=== PATIENT | male | born 1970 | race Caucasian/White ===

== ENCOUNTER 2017-05-29 16:07 | Emergency (ER) | payer MEDICAID ==
[~2017-05-29] VITALS: Wt 74.0 kg
[2017-05-29] MEDS ORDERED: ONDANSETRON (ODT) 4 MG TAB ODT STA (16:41)
[2017-05-29] MEDS ORDERED: DIPHENHYDRAMINE 50 MG INJ IM STA (16:41)
[2017-05-29] MEDS ORDERED: HYDROmorphONE 1 MG/ML SYG IM STA (16:41)
--- NOTE | 2017-05-29 17:19 | RADRPT ---
PROCEDURE: CT Head without contrast. CLINICAL INDICATION: Patient experiencing a headache. TECHNIQUE: Continuous axial CT images were obtained from the base of skull to the vertex. No cont rast was administered. The calculated radiation dose measures 720 mGy centimeters. The CTDI measures 45 mGy COMPARISON: None available FINDINGS: The ventricles are symmetric and normal in size. There is no abnormal intra-axial or extra-axial fl uid collection. There is no evidence of intracranial hemorrhage. There are no abnormal areas of in creased or decreased attenuation in the brain parenchyma. There is a 4 mm extra-axial calcification over the left frontal convexity, likely a calcified meningioma, or osteoma. The bony calvarium is intact. The orbital soft tissue contents are unremarkable. Paranasal sinuses appear clear IMPRESSION: No mass effect or acute intracranial bleed. Small 4 mm calcification over the left frontal convexity , likely a small calcified meningioma or osteoma. RPTAT: HBST .Fred Tang MD, MD Date Time Electronically viewed and signed by .Fred Tang MD, on 05/29/2017 17:19 .T/
[2017-05-29] MEDS ORDERED: HYDR-902 PO (18:09)
[2017-05-29] MEDS ORDERED: ONDA4TAB14 PO (18:09)
--- NOTE | 2017-05-29 18:12 | ERD ---
ER Documentation Chief Complaint Date/Time DATE: 05/29/17 TIME: 18:10 Chief Complaint GOLDSTEIN X 2 DAYS HPI This is a 47-year-old male has had a headache for the past 2 days. The patient states he had a gradual onset of the bitemporal headache that is throbbing with photophobia. Is also worse with movement but there is no phonophobia. He has no history of migraines or other headaches. Denies any trauma. Headache is throbbing and nonradiating. He has no nausea vomiting or diarrhea. No focal neurological complaints such as numbness weakness visual change or speech change. No preceding aura. This is a headache is mild to moderate in nature. He said he saw his doctor yesterday and he was given a prescription for Tylenol which is not helping much. ROS All systems reviewed and are negative except as per history of present illness. Medications Home Meds Active Scripts Ondansetron (Ondansetron Odt) 4 Mg Tab.rapdis, 4 MG PO Q6H Y for NAUSEA AND/OR VOMITING, #10 TAB Prov:EDWIN LOZANO DO 05/29/17 Hydrocodone/Acetaminophen ([place] 10-325 Tablet) 1 Each Tablet, 1 TAB PO Q6H Y for PAIN, #20 TAB Prov:EDWIN LOZANO. DO 05/29/17 Allergies Allergies: Coded Allergies: No Known Allergy (Unverified , 05/29/17) PMhx/Soc Medical and Surgical Hx: pt denies Medical Hx, pt denies Surgical Hx History of Surgery: No Anesthesia Reaction: No Hx Neurological Disorder: No Hx Respiratory Disorders: No Hx Cardiac Disorders: No Hx Psychiatric Problems: No Hx Miscellaneous Medical Probl: No Hx Alcohol Use: No Hx Substance Use: No Hx Tobacco Use: No Smoking Status: Never smoker FmHx Family History: No coronary disease Physical Exam Vitals Vital Signs Date Time Temp Pulse Resp B/P Pulse Ox O2 Delivery O2 Flow Rate FiO2 05/29/17 16:09 98.8 85 20 143/84 99 Physical Exam Const: [Well-developed, well-nourished] Head: [Atraumatic, normocephalic] Eyes: [Normal Conjunctiva, PERRLA, EOMI, normal sclera, no nystagmus] ENT: [Normal External Ears, Nose and Mouth, moist mucus membranes.] Neck: [Full range of motion. No meningismus, no lymphadenopathy.] Resp: [Clear to auscultation bilaterally, no wheezing, rhonchi, rales] Cardio: [Regular rate and rhythm, no murmurs, S1 S2 present] Abd: [Soft, non tender x 4, non distended. Normal bowel sounds, no guarding or rebound, no pulsitile abdominal masses or bruits] Skin: [No petechiae or rashes, no ecchymosis , no maculopapular rash] Back: [No midline or flank tenderness] Ext: [No cyanosis, or edema, FROM x 4, normal inspection, neurovascularly intact x 4] Neur: [Awake and alert, STR 5/5 x 4, sensation intact x 4, no focal findings, cerebellum intact] Psych: [Normal Mood and Affect] Results 24 hrs Current Medications Medications (Trade) Dose Ordered Sig/Omayra Route PRN Reason Start Time Stop Time Status Last Admin Dose Admin Hydromorphone HCl (Dilaudid) 1 mg ONCE STAT IM 05/29/17 16:41 05/29/17 16:43 DC 05/29/17 17:31 Diphenhydramine HCl (Benadryl) 25 mg ONCE STAT IM 05/29/17 16:41 05/29/17 16:43 DC 05/29/17 17:32 Ondansetron HCl (Zofran Odt) 4 mg ONCE STAT ODT 05/29/17 16:41 05/29/17 16:43 DC 05/29/17 17:31 Procedures/MDM PROCEDURE: CT Head without contrast. CLINICAL INDICATION: Patient experiencing a headache. TECHNIQUE: Continuous axial CT images were obtained from the base of skull to the vertex. No contrast was administered. The calculated radiation dose measures 720 mGy centimeters. The CTDI measures 45 mGy COMPARISON: None available FINDINGS: The ventricles are symmetric and normal in size. There is no abnormal intra- axial or extra-axial fluid collection. There is no evidence of intracranial hemorrhage. There are no abnormal areas of increased or decreased attenuation in the brain parenchyma. There is a 4 mm extra-axial calcification over the left frontal convexity, likely a calcified meningioma, or osteoma. The bony calvarium is intact. The orbital soft tissue contents are unremarkable. Paranasal sinuses appear clear IMPRESSION: No mass effect or acute intracranial bleed. Small 4 mm calcification over the left frontal convexity, likely a small calcified meningioma or osteoma. RPTAT: HBST .Fred Tang MD, Date Time Electronically viewed and signed by .Fred Tang MD, on 05/29/2017 17:19 .T/ CC: EDWIN LOZANO DO Patient has complete headache relief at this time. He feels headache is consistent with a presentation of a migraine. He has no signs of intracranial pathology. We will discharge home on [place] and Zofran Departure Diagnosis: Primary Impression: Migraine Migraine type: unspecified Status migrainosus presence: without status migrainosus Intractability: not intractable Qualified Code: G43.909 - Migraine without status migrainosus, not intractable, unspecified migraine type Condition: Stable Patient Instructions: Headache, Migraine (Classical) EDWIN LOZANO DO May 29, 2017 18:12
== END 2017-05-29 18:22 | disposition home or self-care (01) ==
LOC: FTE 16:07
DX: G43.909 Migraine, unspecified, not intractable, without status migrainosus (principal)
CPT/HCPCS: 70450; 96372; J1170; J1200; Z7502; Z7610

== ENCOUNTER 2017-12-08 08:25 | Emergency (ER) | END 2017-12-08 10:34 | disposition home or self-care (01) ==

== ENCOUNTER 2018-11-13 09:20 | Emergency (ER) | payer MEDICAID ==
[~2018-11-13] VITALS: Ht 162.6 cm; Wt 72.0 kg
[~2018-11-13 09:20] MED LIST: ALBU18HF INHALATION; AZIT500T2 PO; HYDR-3980 PO; IBUP-1542 PO; ONDA4TAB14 PO
[2018-11-13 09:29] VITALS: BP 140/81; PULSE 68; RESP 19; Ht 162.6 cm; Wt 72.0 kg
[2018-11-13] MEDS ORDERED: IBUP-1542 PO (09:42)
--- NOTE | 2018-11-13 09:44 | ERD ---
ER Documentation Chief Complaint Chief Complaint bump @ left wrist HPI 48-year-old [id number]-cgsphien male presents the emergency department with a painless bump on his left wrist. Patient states she has had this bump for approximately 1 month. Occasionally gets bigger but does not cause severe pain. It causes no significant limitation and reports no functional loss. Reports no trauma. ROS All systems reviewed and are negative except as per history of present illness. Medications Home Meds Active Scripts Ibuprofen* (Motrin*) 600 Mg Tab, 600 MG PO Q6, #30 TAB Prov:JETHROXIOMARA 11/13/18 Azithromycin* (Zithromax* Tri-Demario) 500 Mg Tablet, 500 MG PO DAILY for 3 Days, TAB Prov:NICOLE SCHULTZ-Enoch 12/08/17 Albuterol Sulfate* (Ventolin HFA*) 18 Gm Hfa.aer.ad, 2 PUFF INHALATION Q4H, #1 INHALER Prov:NICOLE SCHULTZ-C 12/08/17 Ibuprofen* (Motrin*) 600 Mg Tab, 600 MG PO Q6, #30 TAB Prov:NICOLE SCHULTZC 12/08/17 Ondansetron (Ondansetron Odt) 4 Mg Tab.rapdis, 4 MG PO Q6H PRN for NAUSEA AND/OR VOMITING, #10 TAB Prov:EDWIN LOZANO DO 05/29/17 Hydrocodone/Acetaminophen ([place] 10-325 Tablet) 1 Each Tablet, 1 TAB PO Q6H PRN for PAIN, #20 TAB Prov:STEFFEN LOZANOSTJERSONS Jerald. DO 05/29/17 Allergies Allergies: Coded Allergies: No Known Allergy (Unverified , 05/29/17) PMhx/Soc Medical and Surgical Hx: pt denies Medical Hx, pt denies Surgical Hx History of Surgery: No Anesthesia Reaction: No Hx Neurological Disorder: No Hx Respiratory Disorders: No Hx Cardiac Disorders: No Hx Psychiatric Problems: No Hx Miscellaneous Medical Probl: No Hx Alcohol Use: No Hx Substance Use: No Hx Tobacco Use: No Smoking Status: Never smoker Physical Exam Vitals Vital Signs Date Temp Pulse Resp B/P (MAP) Pulse Ox O2 O2 Flow FiO2 Time Delivery Rate 11/13/18 98.0 68 19 140/81 100 09:29 (100) Physical Exam General: well developed, well nourished, in no distress. Neuro: Normal speech, gait, balance Extremity: On the left wrist, there is a small ganglion cyst measuring less than a dime. There is no evidence of inflammation or abscess. Patient is neurovascular intact with normal tendon function. Procedures/MDM Patient was taken to a room, seen and examined Medical decision makin-year-old lyalu-hugm-lfktbvww male presents the emergency department with an uninfected ganglion cyst on the left wrist. Patient's appropriate for outpatient supportive care. Departure Diagnosis: Primary Impression: Ganglion and cyst of synovium, tendon and bursa Condition: Stable Patient Instructions: Ganglion Cyst: Hand XIOMARA MORELOS Nov 13, 2018 09:44
== END 2018-11-13 09:46 | disposition home or self-care (01) ==
LOC: FTE 09:20
DX: M67.432 Ganglion, left wrist (principal)
CPT/HCPCS: 99282

== ENCOUNTER 2018-12-30 08:25 | Emergency (ER) | payer MEDICAID ==
[~2018-12-30] VITALS: Ht 172.7 cm; Wt 74.4 kg
[2018-12-30 08:33] VITALS: BP 124/78; PULSE 82; RESP 20; Ht 172.7 cm; Wt 74.4 kg
[2018-12-30] MEDS ORDERED: NAPR-985 PO (08:56)
[2018-12-30] MEDS ORDERED: ACET500C5 PO (08:56)
--- NOTE | 2018-12-30 09:25 | ERD ---
ER Documentation Chief Complaint Chief Complaint Complains of a ganglion cyst on left wrist HPI 48 year-old [male] coming in today with Chief Complaint: Left wrist pain History of Present Illness: Patient coming in today with complaint of left wrist pain for approximately 2-3 months. Reports diagnosis at [facility] ER in which he was diagnosed with ganglion cyst and was given ibuprofen. Reporting ibuprofen does not work for pain and he is having increased pain with flexion extension of wrist. Denies any other associated symptoms. She reports being given a Velcro wrist splint, reports he used it initially but it was not helping with pain. Occasionally gets bigger but does not cause severe pain, usually pain level 2-6. It causes no significant limitation and reports no functional loss. Reports no trauma. Review of systems: All systems were reviewed and are negative except for what is indicated in the history of present illness. Past Medical History: [Negative for hypertension, diabetes or other medical problems] Social History: [Patient denies tobacco, alcohol, elicit drug use] Medications: [None] Allergies: [NKDA] Social Concerns: Denies ROS All systems reviewed and are negative except as per history of present illness. Medications Home Meds Active Scripts Acetaminophen* (Tylophen*) 500 Mg Capsule, 2 CAP PO Q6H PRN for PAIN AND OR ELEVATED TEMP, #30 CAP Prov:RACQUEL BOATENG NP 12/30/18 Naproxen* (Naprosyn*) 500 Mg Tablet, 500 MG PO BID PRN for PAIN AND/OR INFLAMMATION, #30 TAB Prov:RACQUEL BOATENG NP 12/30/18 Ibuprofen* (Motrin*) 600 Mg Tab, 600 MG PO Q6, #30 TAB Prov:XIOMARA MORELOS 11/13/18 Azithromycin* (Zithromax* Tri-Demario) 500 Mg Tablet, 500 MG PO DAILY for 3 Days, TAB Prov:NICOLE SCHULTZ-C 12/08/17 Albuterol Sulfate* (Ventolin HFA*) 18 Gm Hfa.aer.ad, 2 PUFF INHALATION Q4H, #1 INHALER Prov:NICOLE SCHULTZ-C 12/08/17 Ibuprofen* (Motrin*) 600 Mg Tab, 600 MG PO Q6, #30 TAB Prov:NICOLE SCHULTZ-C 12/08/17 Ondansetron (Ondansetron Odt) 4 Mg Tab.rapdis, 4 MG PO Q6H PRN for NAUSEA AND/OR VOMITING, #10 TAB Prov:EDWIN LOZANO. DO 05/29/17 Hydrocodone/Acetaminophen ([place] 10-325 Tablet) 1 Each Tablet, 1 TAB PO Q6H PRN for PAIN, #20 TAB Prov:STEFFEN LOZANOSTOLOS A. DO 05/29/17 Allergies Allergies: Coded Allergies: No Known Allergy (Unverified , 05/29/17) PMhx/Soc History of Surgery: No Anesthesia Reaction: No Hx Neurological Disorder: No Hx Respiratory Disorders: No Hx Cardiac Disorders: No Hx Psychiatric Problems: No Hx Miscellaneous Medical Probl: No Hx Alcohol Use: No Hx Substance Use: No Hx Tobacco Use: No FmHx Family History: No diabetes, No coronary disease Physical Exam Vitals Vital Signs Date Temp Pulse Resp B/P (MAP) Pulse Ox O2 O2 Flow FiO2 Time Delivery Rate 12/30/18 97.0 82 20 124/78 98 08:33 (93) Physical Exam Const: No acute distress Head: Atraumatic Eyes: Normal Conjunctiva ENT: Normal External Ears, Nose and Mouth. Neck: Full range of motion. No meningismus. Resp: Clear to auscultation bilaterally Cardio: Regular rate and rhythm, no murmurs Abd: Soft, non tender, non distended. Normal bowel sounds Skin: No petechiae or rashes Back: No midline or flank tenderness Ext: No cyanosis, or edema; firm nodule about the size of a dime noted to dorsum aspect of left wrist, no fluctuance, no streaking, no warmth, no erythema Neur: Awake and alert Psych: Normal Mood and Affect Procedures/MDM ED course includes a thorough examination and history. ED course includes wrist splint; despite patient reporting that he received splint when he came to ER in October and did not get any relief of pain. Low suspicion for life-threatening medical emergency Otherwise healthy patient presenting with constellation of symptoms likely representing uncomplicated ganglion cyst as characterized by history, physical exam findings No respiratory distress, otherwise relatively well appearing and nontoxic. Patient educated on diagnoses, prescriptions [naproxen], follow-up care, return precautions. Strict return precautions given for worsening condition; questions answered discharge. Worsening symptoms includes warmth, redness, decreased sensation Disposition for discharge with followup in 2-3 days with PCP/clinic; education given for follow-up with primary care clinic for possible aspiration of ganglion cyst to help with pain or surgical referral for removal. Patient verbalizes understanding of instruction, present. Departure Diagnosis: Primary Impression: Ganglion cyst of dorsum of left wrist Condition: Stable Patient Instructions: Ganglion Cyst: Hand, Ganglion Cyst Ref[facility] Usted se noriega hecho un examen mdico de control que le indica que no est en shasta condicin que requiera tratamiento urgente en el Departamento de Emergencia. Un estudio ms profundo y el tratamiento de alexander condicin pueden esperar sin ningn riesgo hasta que usted sea atendida/o en el consultorio de alexander mdico o shasta clnica. Es responsabilidad suya arreglar shasta pablo para el seguimiento del modesta. MANEJO DE CONDICIONES NO URGENTES EN EL FUTURO 1) Si usted tiene un mdico de atencin primaria: Usted debera llamar a alexander mdico de atencin primaria antes de venir al departamento de emergencia. Despus de las horas de consultorio, alexander doctor o alexander asociado/a est disponible por telfono. El mdico o enfermero de radha en el servicio telefnico puede asesorarle por daksha medio para atender el problema, o modesta contrario se puede programar shasta pablo. 2) Si usted no tiene un mdico de atencin primaria: Llame al mdico o clnica de referencia que aparece abajo phuong las horas de consultorio para hacer shasta pablo para que le vean. CLINICAS: [facility] [phone] [address] [facility] [phone] [address] [facility] [phone] [address] [facility] 396 [phone] [address] [facility] 472 [phone] [address] [facility] [phone] [facility] () Javier se noriega hecho un examen mdico de control que le indica que no est en shasta condicin que requiera tratamiento urgente en el Departamento de Emergencia. Un estudio ms profundo y el tratamiento de alexander condicin pueden esperar sin ningn riesgo hasta que usted sea atendida/o en el consultorio de alexander mdico o shasta clnica. Es responsabilidad suya arreglar shasta pablo para el seguimiento del modesta. MANEJO DE CONDICIONES NO URGENTES EN EL FUTURO 1) Si usted tiene un mdico de atencin primaria: Usted debera llamar a alexander mdico de atencin primaria antes de venir al departamento de emergencia. Despus de las horas de consultorio, alexander doctor o alexander asociado/a est disponible por telfono. El mdico o enfermero de radha en el servicio telefnico puede asesorarle por daksha medio para atender el problema, o modesta contrario se puede programar shasta pablo. 2) Si usted no tiene un mdico de atencin primaria: Llame al mdico o condado institucions de referencia que aparece abajo phuong las horas de consultorio para hacer shasta pablo para que le vean. SI USTED NO PUEDE PAGAR PARA AGUILAR UN MEDICO puede ir a: [facility] [address] [place] [address] [facility] [address] [place] [address] [facility] [address] [place] [address] [facility] [address] [place] [address] Additional Instructions: Call your primary care doctor today for an appointment during the next 2-3 days.See the doctor sooner or return here if your condition worsens before your appointment time. Wear wrist splint for 1-2 weeks to see if it helps with pain. See your primary care doctor at the clinic if you continue to have pain. You may need the ganglion cyst drained with a needle or surgery removal if the pain worsens or infection occurs. Llame a alexander mdico de atencin primaria hoy para shasta pablo phuong los prximos 2- 3 winkler. Consulta con el mdico antes o regresa aqu si tu afeccin empeora antes de la hora de tu pablo. Use la frula de mueca phuong 1-2 semanas para aguilar si ayuda con el dolor. Consulta con tu mdico de atencin primaria en la clnica si sigues teniendo dolor. Es posible que necesites el quiste del ganglio drenado con shasta aguja o extirpacin quirrgica si el dolor empeora o se produce shasta infeccin. RACQUEL BOATENG NP Dec 30, 2018 09:25
== END 2018-12-30 09:44 | disposition home or self-care (01) ==
LOC: FTE 08:25
DX: M67.432 Ganglion, left wrist (principal)
CPT/HCPCS: 29125; Z7502